=== PATIENT | female | born 1990 | race Caucasian/White ===

== ENCOUNTER 2024-01-19 19:16 | Emergency (ER) | payer OTHER, SELFPAY ==
[2024-01-19 19:20] VITALS: BP 125/93
[2024-01-19 20:12] LABS: Beta HCG Quantitative < 2.39 mIU/ml
[2024-01-19 20:14] LABS: Troponin I < 0.012 ng/ml
--- NOTE | 2024-01-19 22:21 | ED.GENMED ---
History of Present Illness
<Adriel Antonio MD, Resident - Last Filed: 01/20/24 00:07>
General
Chief Complaint: Chest Pain
Source: patient and family
Time Seen by Provider: 01/19/24 21:59
Travel History
Have you traveled to any high risk areas for coronavirus over the past 14 days?: No
Have you had any contact with someone who has COVID-19?: No
Do you have any symptoms of coronavirus? Fever > 100 degrees, chills, cough, shortness of breath, sore throat, loss of taste or smell, muscle aches, or headache?: No
History of Present Illness
History of Present Illness:
Shaila Conti, 33-year-old female, has had mid-chest discomfort for the past 3-4 day. She describes the sensation as 'something sitting on her'. The pain also radiates to her back between her shoulder blades. Slightly worse on deep inspiration. The
discomfort is reproduced when trying to raise her arms against resistance. Remote history of upper respiratory infection a month ago; did not check for COVID-19 or influenza.
Past History
<Adriel Antonio MD, Resident - Last Filed: 01/20/24 00:07>
Past History
ED Past Surgical History: (*2)
Social History
Tobacco: Former smoker
Alcohol: None
Drug: None
Personal: Single
Living: with family
Review of Systems
<Adriel Antonio MD, Resident - Last Filed: 01/20/24 00:07>
Review of Systems
Allergies reviewed?: Yes
All Other Systems: ROS reviewed and negative except as documented in HPI and ROS
Phy Exam
<Adriel Antonio MD, Resident - Last Filed: 01/20/24 00:07>
General Physical Exam
General Presentation: well appearing and no apparent distress
General Skin: warm and dry
General Habitus: normal
General Mental: alert
General Hydration: appears well hydrated
ENT Exam
ENT Exam: EOMI, pharynx normal, neck supple and normocephalic
Eye Exam
Eye Exam: PERRL, cornea clear and conjunctiva normal
Cardiovascular Exam
Cardiovascular Exam: regular rate/rhythm, no edema, no murmur and normal peripheral pulses
Pulmonary Exam
Pulmonary Exam: lungs clear, no respiratory distress, no rales, no crackles, no rhonchi, no stridor, no wheezing and no cough
Gastrointestinal Exam
Gastrointestinal Exam: normal bowel sounds, non tender, soft, no organomegaly, no pulsatile mass and non distended
Neurological Exam
Neurological Exam: alert, oriented x3, no motor deficits and speech normal
Musculoskeletal Exam
Musculoskeletal Exam: full ROM, no edema and other (anterior chest wall pain when raising arms against resistance)
Skin Exam
Skin Exam: normal color, warm/dry, no rash and no petechia
Psychiatric Exam
Psychiatric Exam: normal mood/affect
Scores
<Adriel Antonio MD, Resident - Last Filed: 01/20/24 00:07>
Heart Score for Chest Pain Patients
STEMI patient?: Not applicable
Course
<Adriel Antonio MD, Resident - Last Filed: 01/20/24 00:07>
Orders/Labs/Results
Orders:
Orders
01/19/24 19:16
ECG [Electrocardiogram (*1)] Urgent
Reason for Study: Chest Pain
01/19/24 19:17
EKG- Treatment ONCE
01/19/24 19:29
Comprehensive Metabolic Panel Urgent
HCG, Beta Quantitative [Beta HCG Quantitative] Urgent
Is this a screen?: No
Troponin I Urgent
01/19/24 22:21
CR Chest - 2 Views Urgent
Comment:
Reason For Exam: chest pain
01/19/24 23:08
Complete Blood Count/With Diff Urgent
01/20/24 00:03
Acetaminophen [Tylenol] 1,000 mg PO NOW STA
Abnormal Lab Results
01/19/24
19:29
Carbon Dioxide 21 L mmol/L
(30)
01/19/24 23:08
01/19/24 19:29
Vital Signs
Initial and Last Documented VS:
Initial Vital Signs
Temp Pulse Resp BP Pulse Ox
98.7 F 85 18 125/93 98
01/19/24 19:20 01/19/24 19:20 01/19/24 19:20 01/19/24 19:20 01/19/24 19:20
Last Documented Vital Signs
Temp Pulse Resp BP Pulse Ox
98.7 F 70 14 108/67 97
01/19/24 19:20 01/19/24 23:30 01/19/24 23:30 01/20/24 00:19 01/20/24 00:18
<Derek Salmeron, DO - Last Filed: 01/19/24 22:36>
Orders/Labs/Results
Orders:
Orders
01/19/24 19:16
ECG [Electrocardiogram (*1)] Urgent
Reason for Study: Chest Pain
01/19/24 19:17
EKG- Treatment ONCE
01/19/24 19:29
Comprehensive Metabolic Panel Urgent
HCG, Beta Quantitative [Beta HCG Quantitative] Urgent
Is this a screen?: No
Troponin I Urgent
01/19/24 22:21
CR Chest - 2 Views Urgent
Comment:
Reason For Exam: chest pain
01/19/24 23:08
Complete Blood Count/With Diff Urgent
01/20/24 00:03
Acetaminophen [Tylenol] 1,000 mg PO NOW STA
Abnormal Lab Results
01/19/24
19:29
Carbon Dioxide 21 L mmol/L
(30)
01/19/24 23:08
01/19/24 19:29
Vital Signs
Initial and Last Documented VS:
Initial Vital Signs
Temp Pulse Resp BP Pulse Ox
98.7 F 85 18 125/93 98
01/19/24 19:20 01/19/24 19:20 01/19/24 19:20 01/19/24 19:20 01/19/24 19:20
Last Documented Vital Signs
Temp Pulse Resp BP Pulse Ox
98.7 F 70 14 108/67 97
01/19/24 19:20 01/19/24 23:30 01/19/24 23:30 01/20/24 00:19 01/20/24 00:18
<Orion Milan PA-C - Last Filed: 01/20/24 12:16>
Orders/Labs/Results
Orders:
Orders
01/19/24 19:16
ECG [Electrocardiogram (*1)] Urgent
Reason for Study: Chest Pain
01/19/24 19:17
EKG- Treatment ONCE
01/19/24 19:29
Comprehensive Metabolic Panel Urgent
HCG, Beta Quantitative [Beta HCG Quantitative] Urgent
Is this a screen?: No
Troponin I Urgent
01/19/24 22:21
CR Chest - 2 Views Urgent
Comment:
Reason For Exam: chest pain
01/19/24 23:08
Complete Blood Count/With Diff Urgent
01/20/24 00:03
Acetaminophen [Tylenol] 1,000 mg PO NOW STA
Abnormal Lab Results
01/19/24
19:29
Carbon Dioxide 21 L mmol/L
(30)
01/19/24 23:08
01/19/24 19:29
Vital Signs
Initial and Last Documented VS:
Initial Vital Signs
Temp Pulse Resp BP Pulse Ox
98.7 F 85 18 125/93 98
01/19/24 19:20 01/19/24 19:20 01/19/24 19:20 01/19/24 19:20 01/19/24 19:20
Last Documented Vital Signs
Temp Pulse Resp BP Pulse Ox
98.7 F 70 14 108/67 97
01/19/24 19:20 01/19/24 23:30 01/19/24 23:30 01/20/24 00:19 01/20/24 00:18
<Adriel Antonio MD, Resident - Last Filed: 01/20/24 00:07>
MDM/Problems Addressed
Differential Diagnosis Includes:
Pectoralis strain; costochondritis; pneumonia
MDM/Problems Addressed:
CXR, ECG and blood work unremarkable. Vitals within normal limits. Likely a strain of the chest wall based on the exam.
<Adriel Antonio MD, Resident - Last Filed: 01/20/24 00:07>
*Critical Care Note
Total Time (30-74mins, 75-104mins- exclusive of procedures): Not Applicable
<Orion Milan PA-C - Last Filed: 01/20/24 12:16>
Update Note
Update Note:
11:39 AM - received notification from radiology that patient has a subtle LLL pneumonia vs atelectasis on CXR. Contacted patient via telephone number left but no answer. VM left for patient to return call.
12:15 PM - Patient returned call. States still with dry cough. Would like Rx for abx however will wait another 2-3 days until taking if symptoms remained. Recommended follow up with PCP for repeat CXR in 1-2 weeks.
ED Attending Note
<Adriel Antonio MD, Resident - Last Filed: 01/20/24 00:07>
-
Portions of this chart may have been created with voice recognition software.� Occasional wrong word or��sound alike� substitutions may have occurred due to the inherent limitations of voice recognition software.
<Derek Salmeron, DO - Last Filed: 01/19/24 22:36>
ED Attending Note
Patient seen and examined by attending physician: Yes
I performed a history and physical exam of patient and discussed management with resident, I reviewed resident's note and agree with documented findings and plan of care.: Yes
ED Attending Note:
I have seen and evaluated the patient with a [id number] encounter. I have spoken to the advance practicer provider and involved in the medical history, the physical exam, medical decision making.
Evaluation and management service: agree unless noted differently below.
Results interpretation: agree unless noted differently below.
Focused HPI: 33-year-old female presenting with intermittent dyspnea on exertion. She had an episode like this a few days ago but the she attributes this to recent viral URI. Symptoms are better but then reoccurred today. Mom at bedside believes
this could be anxiety related. Patient denies symptoms of lying flat
Physical exam: Sitting in bed comfortably. Heart regular rate and rhythm. No friction rub and no murmur. No leg edema. Lungs clear
Medical Decision Making: EKG nonischemic. Troponin negative. Will obtain basic blood work and chest x-ray and refer to cardiology. Will consider hydroxyzine as needed. Patient is neither hypoxic nor tachycardic to suspect PE.
Discharge Plan
Departure
Patient Disposition: Home (Routine Discharge)
Date of Disposition: 01/20/24
Time of Disposition: 00:03
Patient with high blood pressure during this ER visit?: Yes
Condition: Good
Discharge Problem:
Chest wall muscle strain
Instructions: Costochondritis, Muscle Strain (DC)
Prescriptions:
New
amoxicillin-pot clavulanate 875-125 mg tablet
1 tab PO BID Qty: 20 0RF
No Action
21-iron fu-folic acid [ Complete] 1 EACH tablet
1 tab PO DAILY
oxycodone-acetaminophen 5 MG/325 MG tablet
1 tab PO Q4HPRN PRN (Reason: moderate pain) Qty: 15 0RF
ibuprofen 600 MG tablet
600 mg PO Q4HPRN PRN (Reason: cramps) 0RF
metaxalone 800 mg tablet
800 mg PO TID PRN (Reason: muscle pain) Qty: 14 0RF
Referrals:
Yomi Gilmore MD [Family Provider] -
Activity Restrictions/Additional Instructions:
Rest and take acetaminophen (Tylenol) 650 mg and ibuprofen (Motrin) 600 mg every 6-8 hours as needed. Follow-up with your primary.
Interventions
Interventions:
*Risk Screen - Suicide Last Done: 01/19/24 19:22
*General Assessment Last Done: 01/19/24 22:37
*Neglect/Abuse Screening Last Done: 01/19/24 19:22
ED- Fall Risk Assessment Last Done: 01/19/24 22:37
*ED COVID-19 Vaccine History Last Done: 01/19/24 22:37
*Nursing Disposition Last Done: 01/20/24 00:20
ED- Cardiac Assessment Last Done: 01/19/24 22:37
Discharge Date and Time
Discharge Date/Time: 01/20/24 00:20
Print Language: CITIZEN OF [place]
[2024-01-19 22:47] VITALS: BP 116/82
[2024-01-19 23:16] LABS: % Basophils 0.3 % (0-2); % Eosinophils 2.2 % (0-6); % Immature Granulocytes 0.3 % (0-0.5); % Lymphocytes 40.6 % (20.5-51.1); % Monocytes 8.9 % (1.7-9.3); % Neutrophils 47.7 % (42.2-75.2); Absolute Eosinophils 0.2 10^3/uL (0-0.7); Absolute Lymphocytes 2.8 10^3/uL (1.2-3.4); Absolute Monocytes 0.6 10^3/uL (0.1-0.6); Absolute Neutrophils 3.3 10^3/uL (1.4-6.5); Hematocrit 39.4 % (37.0-47.0); Hemoglobin 13.3 g/dL (12.0-16.0); Mean Corp Hgb Conc. 33.8 g/dL (33.0-37.0); Mean Corpuscular Hgb 28.8 pg (27.0-31.0); Mean Corpuscular Volume 85.3 fL (81.0-99.0); Mean Platelet Volume 9.1 fL (7.4-10.4); Nucleated Red Blood Cells % 0 %; Platelet Count 260 10^3/uL (130-400); Red Blood Cell Count 4.62 10^6/uL (4.20-5.40); Red Cell Dist. Width 12.8 % (11.5-14.5)
[2024-01-19 23:17] LABS: ALT (SGPT) 30 U/L (0-35); AST (SGOT) 29 U/L (14-36); Albumin 4.8 g/dl (3.5-5.0); Alkaline Phosphatase 113 U/L (38-126); Blood Urea Nitrogen 7 mg/dl (7-17); Calcium 10.1 mg/dl (8.4-10.2); Carbon Dioxide 21 mmol/L (22-30); Chloride 106 mmol/L (98-107); Glucose 98 mg/dl (70-99); Potassium 4.9 mmol/L (3.5-5.1); Sodium 140 mmol/L (135-145); Total Bilirubin 0.4 mg/dl (0.2-1.3); Total Protein 7.2 g/dl (6.3-8.2); eGFR > 60.00
[2024-01-20] MEDS: TYLENOL 1000 MG PO (00:13)
[2024-01-20 00:19] VITALS: BP 108/67
== END 2024-01-20 00:20 | disposition home or self-care (01) ==
LOC: EMR 19:16
PROVIDERS: Student in an Organized Health Care Education/Training Program; EMERGENCY PHYSICIAN Student in an Organized Health Care Education/Training Program; FAMILY PHYSICIAN Family Medicine
DX: S29.011A Strain of muscle and tendon of front wall of thorax, initial encounter (principal); X58.XXXA Exposure to other specified factors, initial encounter; R07.89 Other chest pain; Z87.891 Personal history of nicotine dependence
CPT/HCPCS: 99283; 71046; 80053; 84484; 84702; 85025; 93005